=== PATIENT | female | born 1970 | race Hispanic/Latino ===

== ENCOUNTER 2019-09-19 16:52 | Emergency (ER) | payer OTHER ==
[2019-09-19] MEDS ORDERED: MORPHINE 4 MG/ML SYR ONE (18:20)
[2019-09-19] MEDS ORDERED: ONDANSETRON 4 MG/2 ML VIAL ONE (18:20)
[2019-09-19 18:31] LABS: Absolute Lymphocytes (CBC) 1.9 K/uL (0.7-4.9); Basophils % 0.5 % (0-1.3); Hematocrit 38.8 % (36.0-45.0); Lymphocytes % 33.5 % (15.3-44.8); MPV 9.2 fL (7.6-11.3); RBC Red Blood Cell Count 4.25 M/uL (3.86-4.86)
[2019-09-19 18:48] LABS: ALT/SGPT 17 U/L (12-78); AST/SGOT 16 U/L (15-37); Alkaline Phosphatase 76 U/L (45-117); BUN Blood Urea Nitrogen 8 mg/dL (7-18); Bicarbonate 29 mmol/L (21-32); Bilirubin Direct 0.1 mg/dL (0-0.2); Bilirubin Total 0.4 mg/dL (0.2-1.0); Glucose Level 106 mg/dL (74-106); Lipase 103 U/L (73-393); Potassium 3.7 mmol/L (3.5-5.1); Protein, Total 7.9 g/dL (6.4-8.2); Sodium Level 138 mmol/L (136-145)
[2019-09-19 19:18] LABS: Urine Blood TRACE (NEG); Urine Glucose NEGATIVE (NEG); Urine Protein NEGATIVE (NEG)
--- NOTE | 2019-09-19 19:45 | RAD REPORT ---
EXAM DESCRIPTION: CT - Abdomen Pelvis W Contrast - 09/19/2019 7:10 pm CLINICAL HISTORY: Right flank pain, abdominal pain COMPARISON: CT ABD PELVIS W CONTRAST dated 03/24/2013; Abdomen Pelvis Wo Contrast dated 02/17/2019 TECHNIQUE: Biphasic, helical CT imaging of the abdomen and pelvis was performed following 100 ml non -ionic IV contrast. No oral contrast. All CT scans are performed using dose optimization technique as appropriate and may include automated exposure control or mA/KV adjustment according to patient size. FINDINGS: No suspicious findings in the lung bases. The liver, spleen, and pancreas show no suspicious findings. Cholecystectomy clips are present. No bi liary tree dilatation. Symmetric renal function is seen with no hydronephrosis or suspicious renal mass. No pyelonephritis o r acute parenchymal process. No bladder abnormalities. No adrenal abnormalities. Uterus is absent. Right ovary is not seen and may be absent or atrophic. Nodular contour is present t o the 3 centimeter size left ovary. Left ovarian fullness is similar or decreased compared to the Feb study. No dilated bowel loops or bowel wall thickening. No acute GI finding identifiable. No free air, free fluid or inflammatory stranding. No mass or bulky lymphadenopathy. Small fat only periumbilical omar ia is seen. Disc and bony degenerative changes are present. Postsurgical changes are present at the lumbosacral j unction. No acute vascular finding. IMPRESSION: Contrast-enhanced CT abdomen and pelvis imaging shows no emergent finding. Left ovary is not enlarged at 3 cm but does show an unusual lobulated contour. This is not new or pro gressive from February 2019. A follow-up nonemergent outpatient endovaginal ultrasound could be performed for further characteriza tion.
[2019-09-19 20:48] LABS: Urine Bacteria NONE SEEN /HPF (<20); Urine RBC NONE SEEN /HPF (NONE SEEN)
--- NOTE | 2019-09-19 21:09 | ER ---
Nurse's Notes [facility] Name: Naty Gerard Age: 49 yrs Sex: Female : 1970 Arrival Date: 09/19/2019 Time: 16:56 Bed 13 Private MD: Diagnosis: Unspecified abdominal pain;Low back pain;Intra-abdominal and pelvic swelling, mass and lump-left ovarian mass Presentation: 09/19 17:33 Presenting complaint: Patient states: Back pain that started at approximately 1430 aj1 today. Reports that she is scheduled for a CT scan for abdominal pain but this pain is different. Patient reports lower right back pain. Denies dysuria. Transition of care: patient was not received from another setting of care. Onset of symptoms was September 19, 2019 at 14:30. Risk Assessment: Do you want to hurt yourself or someone else? Patient reports no desire to harm self or others. Initial Sepsis Screen: Does the patient meet any 2 criteria? No. Patient's initial sepsis screen is negative. Does the patient have a suspected source of infection? No. Patient's initial sepsis screen is negative. Care prior to arrival: None. 17:33 Method Of Arrival: Ambulatory aj1 17:33 Acuity: ALCIDES 3 mg2 Triage Assessment: 17:39 General: Appears in no apparent distress. comfortable, Behavior is calm, cooperative, aj1 appropriate for age. Pain: Pain currently is 6 out of 10 on a pain scale. Neuro: Level of Consciousness is awake, alert, obeys commands, Oriented to person, place, time, situation. Cardiovascular: Patient's skin is warm and dry. Respiratory: Airway is patent Respiratory effort is even, unlabored, Respiratory pattern is regular, symmetrical. Musculoskeletal: Range of motion: intact in all extremities. CERTIFIED MORTICIAN: 17:39 LMP N/A - Hysterectomy aj1 Historical: - Allergies: 17:39 No Known Allergies; aj1 - Home Meds: 17:39 Estradiol Oral [Active]; Iron CR Oral [Active]; aj1 - PMHx: 17:39 pinched nerve; aj1 - PSHx: 17:39 left ovary removal; Hysterectomy; back surgery; Cholecystectomy; aj1 - Immunization history:: Adult Immunizations up to date. - Coronavirus screen:: The patient has NOT traveled to [place] in the past 14 days. - Social history:: Smoking status: Patient/guardian denies using tobacco. - Ebola Screening: : Patient denies travel to an Ebola-affected area in the 21 days before illness onset. Screenin:18 Abuse screen: Denies threats or abuse. Denies injuries from another. Nutritional mg2 screening: No deficits noted. Tuberculosis screening: No symptoms or risk factors identified. Fall Risk Secondary diagnosis (15 points). Assessment: 19:17 General: Appears in no apparent distress. comfortable, Behavior is calm, cooperative. mg2 Pain: Complains of pain in back and abdomen Pain currently is 5 out of 10 on a pain scale. Quality of pain is described as aching, Pain began gradually, Is intermittent. Neuro: Level of Consciousness is awake, alert, obeys commands, Oriented to person, place, time, situation. Cardiovascular: Capillary refill < 3 seconds Patient's skin is warm and dry. Respiratory: Airway is patent Respiratory effort is even, unlabored, Respiratory pattern is regular, symmetrical. GI: Reports lower abdominal pain, upper abdominal pain, nausea. : Reports burning with urination. EENT: No signs and/or symptoms were reported regarding the EENT system. Derm: Skin is intact, is healthy with good turgor, Skin is pink, warm \T\ dry. normal. Musculoskeletal: Circulation, motion, and sensation intact. Capillary refill < 3 seconds. 19:20 General: Appears in no apparent distress. comfortable, Behavior is calm, cooperative, rr5 appropriate for age, awaiting for CT result.. Pain: Complains of pain in back and abdomen Pain does not radiate. Pain Quality of pain is described as aching, Pain began gradually, Is intermittent. Neuro: Level of Consciousness is awake, alert, obeys commands, Oriented to person, place, time, situation. Cardiovascular: Capillary refill < 3 seconds Patient's skin is warm and dry. Respiratory: Airway is patent Respiratory effort is even, unlabored, Respiratory pattern is regular, symmetrical. GI: Reports lower abdominal pain, upper abdominal pain, nausea. : Reports burning with urination. EENT: No signs and/or symptoms were reported regarding the EENT system. Derm: Skin is intact, is healthy with good turgor, Skin is pink, warm \T\ dry. Musculoskeletal: Capillary refill < 3 seconds, Reports pain in back. 20:10 Reassessment: Patient appears in no apparent distress at this time. Patient is alert, rr5 oriented x 3, equal unlabored respirations, skin warm/dry/pink. awaiting for CT result. orders not crossing over. 21:00 Reassessment: Patient appears in no apparent distress at this time. No changes from rr5 previously documented assessment. Patient and/or family updated on plan of care and expected duration. Pain level reassessed. Patient is alert, oriented x 3, equal unlabored respirations, skin warm/dry/pink. 21:49 Reassessment: Patient appears in no apparent distress at this time. Patient is alert, rr5 oriented x 3, equal unlabored respirations, skin warm/dry/pink. discharge instruction given and explained to patient without complaints made. Patient states symptoms have improved. Vital Signs: 17:39 BP 176 / 93; Pulse 77; Resp 18; Temp 97.6; Pulse Ox 100% on R/A; Weight 59.42 kg (R); aj1 Height 5 ft. 4 in. (162.56 cm) (R); Pain 6/10; 19:35 BP 137 / 81; Pulse 60; Resp 17; Temp 98; Pulse Ox 99% ; Pain 0/10; rr5 21:00 BP 131 / 81; Pulse 66; Resp 17; Pulse Ox 99% ; rr5 21:47 BP 135 / 95; Pulse 64; Resp 17; Pulse Ox 100% ; Pain 0/10; rr5 17:39 Body Mass Index 22.49 (59.42 kg, 162.56 cm) aj1 ED Course: 16:56 Patient arrived in ED. mr 17:25 Patient's name was called from ER lobby. No response. aj1 17:35 Triage completed. aj1 17:39 Arm band placed on. aj1 17:42 Fermin John, PROJECT MANAGER INDUSTRIAL is PHCP. pm1 17:42 Rosendo Tinoco MD is Attending Physician. pm1 17:52 Imer Freed, MELVINA is Primary Nurse. mg2 18:45 Inserted saline lock: 20 gauge in right antecubital area, using aseptic technique. mg2 Blood collected. 19:11 CT completed. Patient tolerated procedure well. Patient moved back from CT. mw3 19:18 No provider procedures requiring assistance completed. mg2 19:19 Patient has correct armband on for positive identification. Pulse ox on. NIBP on. Door mg2 closed. Warm blanket given. 21:04 Urine Dipstick--Ancillary (enter results) Sent. rr5 21:04 Urine --Ancillary (enter results) Sent. rr5 21:49 IV discontinued, intact, bleeding controlled, No redness/swelling at site. Pressure rr5 dressing applied. Administered Medications: 18:30 Drug: Zofran 4 mg Route: IVP; Site: right antecubital; mg2 19:30 Follow up: Response: No adverse reaction rr5 18:33 Drug: morphine 4 mg Route: IVP; Site: right antecubital; mg2 19:30 Follow up: Response: Marked relief of symptoms; RASS: Alert and Calm (0) rr5 Outcome: 21:08 Discharge ordered by MD. pm1 21:49 Discharged to home ambulatory, with family. rr5 21:49 Condition: stable 21:49 Discharge instructions given to patient, Instructed on discharge instructions, follow up and referral plans. medication usage, Demonstrated understanding of instructions, follow-up care, medications, Prescriptions given X 1. 21:50 Patient left the ED. rr5 Signatures: Chen John RN RN aj1 FigueredoBreann mr AlvaroFermin, PROJECT MANAGER INDUSTRIAL PROJECT MANAGER INDUSTRIAL pm1 Imer Freed RN RN mg2 Ary Flores mw3 Viral Seals RN RN rr5 Corrections: (The following items were deleted from the chart) 19:44 17:33 Acuity: ALCIDES 4 aj1 mg2
--- NOTE | 2019-09-19 21:10 | EDPHYS ---
Physician Documentation [facility] Name: Naty Gerard Age: 49 yrs Sex: Female : 1970 Arrival Date: 09/19/2019 Time: 16:56 Bed 13 Private MD: ED Physician Rosendo Tinoco HPI: 09/19 18:15 This 49 yrs old Female presents to ER via Ambulatory with complaints of Back pm1 Pain. 18:15 The patient presents with pain that is acute, with no known mechanism of injury. The pm1 symptoms are located in the right low back. Onset: The symptoms/episode began/occurred today. The pain does not radiate. Associated signs and symptoms: Pertinent positives: abdominal pain, Pertinent negatives: chest pain, constipation, dysuria, fever, SOB. The problem was sustained from unknown cause. Modifying factors: The patient symptoms are alleviated by nothing, the patient symptoms are aggravated by nothing. Severity of symptoms: in the emergency department the symptoms. Has seen [facility] surgery for left ovarian mass in July 2019. 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 - Coronavirus screen:: The patient has NOT traveled to [place] in the past 14 days. - Social history:: Smoking status: Patient/guardian denies using tobacco. - Ebola Screening: : Patient denies travel to an Ebola-affected area in the 21 days before illness onset. ROS: 18:15 Constitutional: Negative for fever, chills, and weight loss, Neck: Negative for injury, pm1 pain, and swelling, Cardiovascular: Negative for chest pain, palpitations, and edema, Respiratory: Negative for shortness of breath, cough, wheezing, and pleuritic chest pain. 18:15 : Negative for injury, bleeding, discharge, and swelling. 18:15 MS/Extremity: Negative for injury and deformity, Skin: Negative for injury, rash, and discoloration, Neuro: Negative for headache, weakness, numbness, tingling, and seizure. 18:15 Abdomen/GI: Positive for abdominal pain, Negative for nausea, vomiting, and diarrhea, constipation. 18:15 Back: Positive for flank pain, on the right. Exam: 18:15 Constitutional: This is a well developed, well nourished patient who is awake, alert, pm1 and in no acute distress. Head/Face: Normocephalic, atraumatic. Neck: Trachea midline, no thyromegaly or masses palpated, and no cervical lymphadenopathy. Supple, full range of motion without nuchal rigidity, or vertebral point tenderness. No Meningismus. Chest/axilla: Normal chest wall appearance and motion. Nontender with no deformity. No lesions are appreciated. Cardiovascular: Regular rate and rhythm with a normal S1 and S2. No gallops, murmurs, or rubs. Normal PMI, no JVD. No pulse deficits. Respiratory: Lungs have equal breath sounds bilaterally, clear to auscultation and percussion. No rales, rhonchi or wheezes noted. No increased work of breathing, no retractions or nasal flaring. Abdomen/GI: Soft, non-tender, with normal bowel sounds. No distension or tympany. No guarding or rebound. No evidence of tenderness throughout. 18:15 Skin: Warm, dry with normal turgor. Normal color with no rashes, no lesions, and no evidence of cellulitis. MS/ Extremity: Pulses equal, no cyanosis. Neurovascular intact. Full, normal range of motion. 18:15 Back: pain, that is mild, of the right low back, normal spinal alignment noted, vertebral tenderness. 18:15 Neuro: Orientation: is normal, Motor: is normal, moves all fours, Sensation: is normal, no obvious gross deficits. Vital Signs: 17:39 BP 176 / 93; Pulse 77; Resp 18; Temp 97.6; Pulse Ox 100% on R/A; Weight 59.42 kg (R); aj1 Height 5 ft. 4 in. (162.56 cm) (R); Pain 6/10; 19:35 BP 137 / 81; Pulse 60; Resp 17; Temp 98; Pulse Ox 99% ; Pain 0/10; rr5 21:00 BP 131 / 81; Pulse 66; Resp 17; Pulse Ox 99% ; rr5 21:47 BP 135 / 95; Pulse 64; Resp 17; Pulse Ox 100% ; Pain 0/10; rr5 17:39 Body Mass Index 22.49 (59.42 kg, 162.56 cm) aj1 MDM: 17:46 Patient medically screened. duane 20:42 Data reviewed: vital signs. Data interpreted: Pulse oximetry: on room air is 99 %. pm1 Interpretation: normal. Counseling: I had a detailed discussion with the patient and/or guardian regarding: the historical points, exam findings, and any diagnostic results supporting the discharge/admit diagnosis, lab results, radiology results, the need for outpatient follow up, to return to the emergency department if symptoms worsen or persist or if there are any questions or concerns that arise at home. 09/19 18:10 Order name: Basic Metabolic Panel 1 09/19 18:10 Order name: CBC with Diff pm1 09/19 18:10 Order name: Creatinine for Radiology pm1 09/19 18:10 Order name: Hepatic Function 1 09/19 18:10 Order name: Lipase 1 09/19 18:34 Order name: CBC with Automated Diff; Complete Time: 18:39 EDMS 09/19 18:47 Order name: Creatinine (Radiology Only); Complete Time: 18:57 EDMS 09/19 18:50 Order name: Basic Metabolic Panel; Complete Time: 18:57 EDMS 09/19 18:50 Order name: Liver (Hepatic) Function; Complete Time: 18:57 EDMS 09/19 18:50 Order name: Lipase; Complete Time: 18:57 EDMS 09/19 18:59 Order name: Urine Dipstick--Ancillary (enter results) 09/19 18:59 Order name: Urine --Ancillary (enter results) 09/19 20:12 Order name: Urine Microscopic Only 1 09/19 21:37 Order name: Urine --Ancillary; Complete Time: 21:40 EDMS 09/19 18:10 Order name: IV Saline Lock; Complete Time: 18:13 pm1 09/19 18:10 Order name: Labs collected and sent; Complete Time: 18:38 pm1 09/19 18:10 Order name: CT Abd/Pelvis - IV Contrast Only 1 09/19 21:37 Order name: Urine Dipstick-Ancillary; Complete Time: 21:40 EDFL 09/19 21:39 Order name: CT; Complete Time: 21:40 EDMS 09/19 21:41 Order name: Urine Microscopic Only; Complete Time: 22:08 EDMS Administered Medications: 18:30 Drug: Zofran 4 mg Route: IVP; Site: right antecubital; mg2 19:30 Follow up: Response: No adverse reaction rr5 18:33 Drug: morphine 4 mg Route: IVP; Site: right antecubital; mg2 19:30 Follow up: Response: Marked relief of symptoms; RASS: Alert and Calm (0) rr5 Disposition: 09/19/19 21:08 Discharged to Home. Impression: Low back pain, Unspecified abdominal pain, Intra-abdominal and pelvic swelling, mass and lump - left ovarian mass. - Condition is Stable. - Discharge Instructions: Abdominal Pain, Adult, Back Pain, Adult. - Prescriptions for Tylenol- Codeine #3 300-30 mg Oral Tablet - take 2 tablets by ORAL route every 6 hours As needed; 20 tablet. - Medication Reconciliation Form, Thank You Letter, Antibiotic Education, Prescription Opioid Use form. - Follow up: Emergency Department; When: As needed; Reason: Worsening of condition. Follow up: Private Physician; When: 2 - 3 days; Reason: Recheck today's complaints, Continuance of care, Re-evaluation by your physician. - Problem is new. - Symptoms have improved. Addendum: 09/21/2019 08:28 Co-signature as Attending Physician, Rosendo Tinoco MD I agree with the assessment and c rollins plan of care. Signatures: Dispatcher [employer] EDFL Chen John RN RN aj1 Rosendo Tinoco MD MD cha Marinas, Patrick, DEEPALI CONDITIONING ROOM WORKER pm1 Imer Freed RN RN mg2 Viral Seals RN RN rr5 Corrections: (The following items were deleted from the chart) 09/19 21:10 21:08 09/19/2019 21:08 Discharged to Home. Impression: Unspecified abdominal pain; Low pm1 back pain. Condition is Stable. Forms are Medication Reconciliation Form, Thank You Letter, Antibiotic Education, Prescription Opioid Use. Follow up: Emergency Department; When: As needed; Reason: Worsening of condition. Follow up: Private Physician; When: 2 - 3 days; Reason: Recheck today's complaints, Continuance of care, Re-evaluation by your physician. Problem is new. Symptoms have improved. pm1 21:50 21:10 09/19/2019 21:08 Discharged to Home. Impression: Low back painUnspecified rr5 abdominal pain; Intra-abdominal and pelvic swelling, mass and lump - left ovarian mass. Condition is Stable. Discharge Instructions: Abdominal Pain, Adult, Back Pain, Adult. Forms are Medication Reconciliation Form, Thank You Letter, Antibiotic Education, Prescription Opioid Use. Follow up: Emergency Department; When: As needed; Reason: Worsening of condition. Follow up: Private Physician; When: 2 - 3 days; Reason: Recheck today's complaints, Continuance of care, Re-evaluation by your physician. Problem is new. Symptoms have improved. pm1
[2019-09-19 21:25] LABS: Urine Culture Reflex Order NOT NEEDED
[2019-09-19 22:23] VITALS: TEMP 98
[2019-09-19 22:56] VITALS: BP 135/95; O2SAT 100
== END 2019-09-19 21:50 | disposition home or self-care (01) ==
LOC: ER 16:52
DX: N83.9 Noninflammatory disorder of ovary, fallopian tube and broad ligament, unspecified (principal); R10.9 Unspecified abdominal pain
CPT/HCPCS: 85025; 80048; 36415; 81025; 80076; 83690; 74177; 96375; 96374; 99284; Q9967; J2405; 81003; 81015